=== PATIENT | female | born 1970 | race Caucasian/White ===

== ENCOUNTER 2017-06-30 10:05 | Observation (INO) | payer OTHER ==
[~2017-06-30 10:05] MED LIST: ALPR.25 PO; DICL-86 PO
[2017-06-30 12:00] VITALS: BP 129/78; PULSE 60; RESP 16; TEMP 96.6; O2SAT 98
[2017-06-30 16:00] VITALS: BP 146/78; PULSE 71; RESP 18; TEMP 96.4; O2SAT 100
[2017-06-30] MEDS ORDERED: LEXA10TA PO (17:02)
[2017-06-30] MEDS ORDERED: BACL10TA PO (17:02)
--- NOTE | 2017-06-30 17:58 | HHI.HP ---
HPI Service CP Hospitalists Primary Care Physician Unknown Admission Diagnosis Chief Complaint: arm numbness Travel History International Travel<30 Days: No Contact w/Intl Traveler <30 Da: No Traveled to Known Affected Are: No History of Present Illness Patient is 46 yr old woman with cerebral palsy. She was sent to [place] by pcp and neurology for mri under sedation. Over past several months pt has been experiencing bilateral upper ext parasthesia and numbness that usually resolves after about 30sec of rest. No significant neck pain or injury. She has had some worsening of her chronic LBP and LLE radiculopathy. She last had MRI under sedation at [place] in 2012. Review of Systems Other arm parasthesias LLE radiculopathy Past Family Social History Past Medical History lumbar disc herniation cerebral palsy depression anxiety Reported Medications Baclofen 10 Mg Tab 10 Mg PO HS PRN Lexapro (Escitalopram Oxalate) 10 Mg Tab 10 Mg PO DAILY Xanax 0.25 Mg (Alprazolam) 0.25 Mg Tab 0.25 Mg PO QIDPRN Voltaren (Diclofenac Sodium) 75 Mg Tabec 75 Mg PO BID Allergies: Coded Allergies: bacitracin (Unverified Allergy, Severe, 05/13/17) bee venom protein (honey bee) (Unverified Allergy, Severe, 05/13/17) gramicidin D (Unverified Allergy, Severe, 05/13/17) neomycin (Unverified Allergy, Severe, 05/13/17) polymyxin B (Unverified Allergy, Severe, 05/13/17) medroxyprogesterone (Unverified Allergy, Unknown, 05/13/17) Family History nc Social History no etoh/tob Physical Exam Vital Signs pleasant heart reg lung cta abd s/nt ext no edema 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 hip flexion/ext nml nml plantar plantar/dorsiflexion. Vital Signs Date Time Temp Pulse Resp B/P (MAP) Pulse Ox O2 Delivery O2 Flow Rate FiO2 06/30/17 16:00 96.4 71 18 146/78 (100) 100 06/30/17 12:00 96.6 60 16 129/78 (95) 98 Caprini VTE Risk Assessment Caprini VTE Risk Assessment: No/Low Risk (score <= 1) Caprini Risk Assessment Model Point Value = 1 Point Value = 2 Point Value = 3 Point Value = 5 Age 41-60 Minor surgery BMI > 25 kg/m2 Swollen legs Varicose veins or History of unexplained or recurrent spontaneous Oral contraceptives or hormone replacement Sepsis (< 1 month) Serious lung disease, including pneumonia (< 1 month) Abnormal pulmonary function Acute myocardial infarction Congestive heart failure (< 1 month) History of inflammatory bowel disease Medical patient at bed rest Age 61-74 Arthroscopic surgery Major open surgery (> 45 min) Laparoscopic surgery (> 45 min) Malignancy Confined to bed (> 72 hours) Immobilizing plaster cast Central venous access Age >= 75 History of VTE Family history of VTE Factor V Leiden Prothrombin [id number] Lupus anticoagulant Anticardiolipin antibodies Elevated serum homocysteine Heparin-induced thrombocytopenia Other congenital or acquired thrombophilia Stroke (< 1 month) Elective arthroplasty Hip, pelvis, or leg fracture Acute spinal cord injury (< 1 month) Prophylaxis Regimen Total Risk Factor Score Risk Level Prophylaxis Regimen 0-1 Low Early ambulation 2 Moderate Order ONE of the following: *Sequential Compression Device (SCD) *Heparin 5000 units SQ BID 3-4 Higher Order ONE of the following medications: *Heparin 5000 units SQ TID *Enoxaparin/Lovenox 40 mg SQ daily (WT < 150 kg, CrCl > 30 mL/min) *Enoxaparin/Lovenox 30 mg SQ daily (WT < 150 kg, CrCl > 10-29 mL/min) *Enoxaparin/Lovenox 30 mg SQ BID (WT < 150 kg, CrCl > 30 mL/min) AND/OR *Sequential Compression Device (SCD) 5 or more Highest Order ONE of the following medications: *Heparin 5000 units SQ TID (Preferred with Epidurals) *Enoxaparin/Lovenox 40 mg SQ daily (WT < 150 kg, CrCl > 30 mL/min) *Enoxaparin/Lovenox 30 mg SQ daily (WT < 150 kg, CrCl > 10-29 mL/min) *Enoxaparin/Lovenox 30 mg SQ BID (WT < 150 kg, CrCl > 30 mL/min) AND *Sequential Compression Device (SCD) Assessment and Plan Problem List: (1) Paresthesia of upper extremity ICD Codes: R20.2 - Paresthesia of skin Status: Acute Plan: 1. parasthesia/numbness upper ext's jamarcus. r/o cervical cord or neuroforaminal lesions 2. lumbar pain with LLE radiculopathy 3. cerebral palsy Pt was admitted for MRI under sedation as she has problems holding still with her cerebral palsy MRI C and L spine w and w/out contrast ordered called radiology who will coordinate with Anesthesia labs pending. (2) Cerebral palsy ICD Codes: G80.9 - Cerebral palsy, unspecified Status: Chronic Earle Coles MD Jun 30, 2017 17:58
[2017-06-30] MEDS ORDERED: ALPRAZolam 0.25 MG TAB PO PRN (18:00)
[2017-06-30] MEDS ORDERED: BACLOFEN 10 MG TAB PO PRN (18:00)
[2017-06-30 18:35] LABS: AUTOMATED NEUTROPHIL # 4.7 TH/MM3 (1.8-7.7); BASOPHIL % 0.5 % (0.0-2.0); EOSINOPHIL # 0.1 TH/MM3 (0-0.4); EOSINOPHIL % 0.7 % (0.0-4.0); HEMATOCRIT 38.1 % (35.0-46.0); HEMO FLAGS DIFF FINAL; LYMPH % 29.1 % (9.0-44.0); LYMPHOCYTE # 2.2 TH/MM3 (1.0-4.8); MEAN CELL VOLUME 86.4 FL (80.0-100.0); MEAN CORPUSCULAR HEMOGLOBIN 28.9 PG (27.0-34.0); MEAN CORPUSCULAR HGB CONC 33.5 % (32.0-36.0); MONO % 7.9 % (0.0-8.0); NEUT % 61.8 % (16.0-70.0); PLATELET COUNT 204 TH/MM3 (150-450); RED BLOOD COUNT 4.41 MIL/MM3 (4.00-5.30); RED CELL DISTRIBUTION WIDTH 13.3 % (11.6-17.2); WHITE BLOOD COUNT 7.7 TH/MM3 (4.0-11.0)
[2017-06-30 18:42] LABS: PROTHROMBIN TIME - PATIENT 10.6 SEC (9.8-11.6)
[2017-06-30 18:54] LABS: ANION GAP 5 MEQ/L (5-15); BICARBONATE 31.3 MEQ/L (21.0-32.0); BLOOD UREA NITROGEN 12 MG/DL (7-18); CHLORIDE 104 MEQ/L (98-107); GLOMERULAR FILTRATION RATE 109 ML/MIN (>89); POTASSIUM 3.8 MEQ/L (3.5-5.1); SODIUM (NA) 140 MEQ/L (136-145)
[2017-06-30 18:57] LABS: BETA HCG QUANT LESS THAN 1 MIU/ML (0-5)
[2017-06-30 20:00] VITALS: BP 130/60; PULSE 68; RESP 18; TEMP 97; O2SAT 98
[2017-06-30] MEDS ORDERED: ESCITALOPRAM OXALATE 10 MG TAB PO SCH (21:00)
[2017-06-30] MEDS: DICLOFENAC SODIUM 75 MG DELAYED RELEASE TAB PO SCH (21:26)
[2017-07-01] VITALS: BP 125/67; PULSE 59; RESP 18; TEMP 96.7; O2SAT 98
[2017-07-01 08:00] VITALS: BP 103/71; PULSE 72; RESP 18; TEMP 97.4; O2SAT 98
[2017-07-01] MEDS ORDERED: ESCITALOPRAM OXALATE 10 MG TAB PO SCH (09:00)
[2017-07-01] MEDS ORDERED: PROPOFOL 500 MG/50 ML INJ 50 ML ONE (09:56)
[2017-07-01] MEDS ORDERED: GADODIAMIDE PF 287 MG/ML 20 ML VIAL (for RAD MRI) IVCONTRAST ONE (10:49)
--- NOTE | 2017-07-01 11:04 | RADRPT ---
EXAM DATE/TIME: 07/01/2017 10:07 [facility] COMPARISON: No previous studies available for comparison. INDICATIONS : Episodes of bilateral upper extremity paresthesia. CONTRAST: 16 cc Omniscan (gadodiamide) IV MEDICAL HISTORY : Cerebral Palsy. SURGICAL HISTORY : Tubal ligation. Tumor removed from neck. Left breast biopsy. ENCOUNTER: Initial ACUITY: 1 month PAIN SCORE: 0/10 LOCATION: back. TECHNIQUE: Multiplanar multisequence MRI of the lumbar spine was performed with and without contrast. FINDINGS: The most caudal appearing lumbar vertebra is numbered as L5. VERTEBRAE: Homogeneous signal. Normal alignment. CONUS: Normal level and configuration. POST CONTRAST: No abnormal areas of contrast enhancement are seen. T12-L1: The thecal sac has a normal diameter. No evidence of disc bulge or protrusion. The neural foramina are patent bilaterally. L1-L2: The thecal sac has a normal diameter. No evidence of disc bulge or protrusion. The neural foramina are patent bilaterally. L2-L3: The thecal sac has a normal diameter. No evidence of disc bulge or protrusion. The neural foramina are patent bilaterally. L3-L4: The thecal sac has a normal diameter. No evidence of disc bulge or protrusion. The neural foramina are patent bilaterally. L4-L5: Slight disc dehydration. Minimal annular disc bulge without significant focal protrusion, canal or fo raminal compromise. Mild bilateral posterior facet arthropathy L5-S1: Slight disc dehydration. Minimal annular disc bulge with slight broad superimposed dorsal protrusion, broadly asymmetric to the right without significant associated canal or foraminal compromise. Modera te bilateral posterior facet arthropathy. CONCLUSION: Degenerative changes in the intervertebral discs and posterior facets at L4-5 and L5-S1. No significa nt anatomic compromise at present. Quan Carter MD on July 01, 2017 at 10:56 Board Certified Radiologist. This report was verified electronically.
--- NOTE | 2017-07-01 11:16 | RADRPT ---
EXAM DATE/TIME: 07/01/2017 10:07 [facility] COMPARISON: No previous studies available for comparison. INDICATIONS : Episodes of bilateral upper extremity paresthesia. CONTRAST: 16 cc Omniscan (gadodiamide) IV MEDICAL HISTORY : Cerebral Palsy. SURGICAL HISTORY : Tubal ligation. Left breast biopsy. Tumor removed from neck. ENCOUNTER: Initial ACUITY: 1 month PAIN SCORE: 0/10 LOCATION: neck. TECHNIQUE: Multiplanar, multisequence MRI examination of the cervical spine was performed. FINDINGS: VERTEBRAE: Normal vertebral body height. Homogeneous marrow signal. ALIGNMENT: No evidence of subluxation. CORD: Normal configuration and signal. POST FOSSA: The cerebellar tonsils are normal in position. POST-CONTRAST: No abnormal areas of enhancement are seen. C2-C3: The thecal sac has a normal configuration. There is no evidence of disc herniation or spinal canal stenosis. The neural foramina are patent bilaterally. C3-C4: The thecal sac has a normal configuration. There is no evidence of disc herniation or spinal canal s tenosis. The neural foramina are patent bilaterally. C4-C5: There is mild broad left paracentral disc protrusion slightly indenting the thecal sac without signif icant associated canal or foraminal compromise. C5-C6: Broad mild undulating dorsal disc osteophyte, slightly eccentric to the left with mild indentation of thecal sac. Mild bilateral foraminal stenosis. C6-C7: The thecal sac has a normal configuration. There is no evidence of disc herniation or spinal canal s tenosis. The neural foramina are patent bilaterally. C7-T1: The thecal sac has a normal configuration. There is no evidence of disc herniation or spinal canal s tenosis. The neural foramina are patent bilaterally. CONCLUSION: Mild disc abnormalities at C4-5 and C5-6 as above. Quan Carter MD on July 01, 2017 at 11:10 Board Certified Radiologist. This report was verified electronically.
--- NOTE | 2017-07-01 11:24 | HHI.PR ---
Subjective Remarks Patient just returning from MRI reports feeling well, just a little tired offers no new complaints at this time Objective Vitals Vital Signs Date Time Temp Pulse Resp B/P (MAP) Pulse Ox O2 Delivery O2 Flow Rate FiO2 07/01/17 08:00 97.4 72 18 103/71 (82) 98 07/01/17 00:00 96.7 59 18 125/67 (86) 98 06/30/17 20:00 97.0 68 18 130/60 (83) 98 06/30/17 16:00 96.4 71 18 146/78 (100) 100 06/30/17 12:00 96.6 60 16 129/78 (95) 98 Result Diagram: 06/30/17 1750 06/30/17 1750 Other Results Laboratory Tests Test 06/30/17 17:50 White Blood Count 7.7 TH/MM3 Red Blood Count 4.41 MIL/MM3 Hemoglobin 12.7 GM/DL Hematocrit 38.1 % Mean Corpuscular Volume 86.4 FL Mean Corpuscular Hemoglobin 28.9 PG Mean Corpuscular Hemoglobin Concent 33.5 % Red Cell Distribution Width 13.3 % Platelet Count 204 TH/MM3 Mean Platelet Volume 8.6 FL Neutrophils (%) (Auto) 61.8 % Lymphocytes (%) (Auto) 29.1 % Monocytes (%) (Auto) 7.9 % Eosinophils (%) (Auto) 0.7 % Basophils (%) (Auto) 0.5 % Neutrophils # (Auto) 4.7 TH/MM3 Lymphocytes # (Auto) 2.2 TH/MM3 Monocytes # (Auto) 0.6 TH/MM3 Eosinophils # (Auto) 0.1 TH/MM3 Basophils # (Auto) 0.0 TH/MM3 CBC Comment DIFF FINAL Differential Comment Prothrombin Time 10.6 SEC Prothromb Time International Ratio 1.0 RATIO Blood Urea Nitrogen 12 MG/DL Creatinine 0.59 MG/DL Random Glucose 103 MG/DL Calcium Level 9.0 MG/DL Sodium Level 140 MEQ/L Potassium Level 3.8 MEQ/L Chloride Level 104 MEQ/L Carbon Dioxide Level 31.3 MEQ/L Anion Gap 5 MEQ/L Estimat Glomerular Filtration Rate 109 ML/MIN Human Chorionic Gonadotropin, Quant LESS THAN 1 MIU/ML Objective Remarks GENERAL: 46 year old CARDIOVASCULAR: Regular rate and rhythm without murmurs, gallops, or rubs. RESPIRATORY: Breath sounds equal bilaterally. No accessory muscle use. GASTROINTESTINAL: Abdomen soft, non-tender, nondistended. 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 hip flexion/ext nml nml plantar plantar/dorsiflexion. A/P Problem List: (1) Paresthesia of upper extremity ICD Codes: R20.2 - Paresthesia of skin Status: Acute Plan: 1. parasthesia/numbness upper ext's jamarcus. r/o cervical cord or neuroforaminal lesions 2. lumbar pain with LLE radiculopathy 3. cerebral palsy Pt was admitted for MRI under sedation as she has problems holding still with her cerebral palsy MRI C and L spine w and w/out contrast ordered called radiology who will coordinate with Anesthesia. - MRI cervical spine with and without contrast (07/01) reviewed and reveals mild disc abnormalities at C4-C5 there is mild broad central disc protrusion slightly indenting the thecal sac without significant associated canal or foraminal compromise C5 to C6 mild underlying dorsal disc osteophyte, slightly eccentric to the left with mild indentation of thecal sac. Mild bilateral foraminal stenosis - MRI lumbar spine without contrast reviewed and reveals degenerative changes in the posterior facets at L4-L5 and L5-S1. No significant anatomic compromise at present. MRI complete DC patient home in stable condition on regular diet as tolerated with no activity restrictions. Patient to follow up with outpatient Neurologist Dr. Baxter and PCP Dr. Antonio Milian (2) Cerebral palsy ICD Codes: G80.9 - Cerebral palsy, unspecified Status: Chronic Assessment and Plan Patient examined. Assessment and plan formulated with Eloise Ahuja PA-C. I agree with the above. mri c and L spine reviewed. copy given to pt. I called pcp. She will f/u closely with her neurologist. Eloise Ahuja Jul 01, 2017 11:24 Earle Coles MD Jul 01, 2017 13:03
[2017-07-01] MEDS: DICLOFENAC SODIUM 75 MG DELAYED RELEASE TAB PO SCH (11:25)
[2017-07-01 12:00] VITALS: BP 131/64; PULSE 65; RESP 18; TEMP 96.2; O2SAT 100
[2017-07-01] MEDS ORDERED: LIDOCAINE HCL 1% PF 5 ML AMPULE OTHER ONE (12:00)
[2017-07-01] MEDS ORDERED: MIDAZOLAM HCL 2 MG/2 ML VIAL IV ONE (12:00)
== END 2017-07-01 14:58 | disposition home or self-care (01) ==
LOC: N07A 10:05
PROVIDERS: ADMIT Family Medicine; ATTEND Family Medicine
DX: R20.0 Anesthesia of skin (principal); R20.2 Paresthesia of skin; M54.5 Low back pain; G89.29 Other chronic pain; M54.16 Radiculopathy, lumbar region; G80.9 Cerebral palsy, unspecified; M48.02 Spinal stenosis, cervical region; M47.897 Other spondylosis, lumbosacral region; F41.9 Anxiety disorder, unspecified; F32.9 Major depressive disorder, single episode, unspecified; Z79.899 Other long term (current) drug therapy
CPT/HCPCS: 72156; 72158; 80048; 84702; 85025; 85610; A9579; G0378; J2250; J3010